=== PATIENT | female | born 1965 | race Caucasian/White ===

== ENCOUNTER 2020-04-10 14:00 | Outpatient (CLI) | payer OTHER, SELFPAY ==
--- NOTE | 2020-04-10 14:02 | MM_ITS ---
WS: [id number] BILATERAL SCREENING MAMMOGRAM WITH DHEERAJ DISPLACEMENT VIEWS. CAD PERFORMED. HISTORY: SCREENING COMPARISON: 03/08/2019 and 05/03/2017 Bilateral craniocaudal and mediolateral like views are performed. Dheeraj displacement views in CC and MLO projection also performed. Breasts composition: The breasts are heterogeneously dense, which may obscure small masses. Implants are prepectoral and intact. No suspicious masses or calcifications. 5 mm asymmetry in the me dial LEFT breast on the CC implant displacement view was also present in 2017. MM/[id number] IMPRESSION: BI-RADS: 2-Benign FOLLOW-UP: 1 Year Follow-up
== END 2020-04-10 14:01 | disposition home or self-care (01) ==
LOC: RADSHAW 14:00
PROVIDERS: PCP Family Medicine; Visit Provider Nurse Practitioner Adult Health
DX: Z12.31 Encounter for screening mammogram for malignant neoplasm of breast (principal)
CPT/HCPCS: 77067